=== PATIENT | male | born 1985 | race Two or more races ===

== ENCOUNTER 2018-06-23 20:49 | Emergency (ER) | payer SELFPAY ==
[~2018-06-23] VITALS: Ht 175.3 cm; Wt 102.1 kg
[2018-06-23 21:35] VITALS: BP 155/96
--- NOTE | 2018-06-23 22:24 | PHYS DOC ---
Past Medical History Past Medical History: No Pertinent History Past Surgical History: Other Additional Past Surgical Histo: RIGHT ELBOW Alcohol Use: Occasionally Drug Use: None Adult General Chief Complaint Chief Complaint: HAND PROBLEM HPI HPI Patient is a 33 year old male who presents to the ER with complaints of a fish hook stuck in the palmar aspect of his left 4th finger. He denies numbness or tingling. He is unsure of when his last tetanus immunization was. Review of Systems Review of Systems Constitutional: Denies fever or chills [] Musculoskeletal: Denies joint pain [] Integument: Denies rash or skin lesions; See HPI [] Neurologic: Denies headache, focal weakness or sensory changes [] Current Medications Current Medications Current Medications Medications (Trade) Dose Ordered Sig/Prudence Start Time Stop Time Status Last Admin Dose Admin Diphtheria/ Tetanus/Acell Pertussis (Boostrix) 0.5 ml ONCE ONCE 06/23/18 22:30 06/23/18 22:31 DC 06/23/18 22:49 0.5 ML Neomycin/ Polymyxin/ Bacitracin (Triple Antibiotic Ointment) 1 pkt 1X ONCE 06/23/18 23:00 06/23/18 23:01 DC 06/23/18 22:48 1 PKT Allergies Allergies Allergies Coded Allergies Type Severity Reaction Last Updated Verified No Known Drug Allergies 06/23/18 No Physical Exam Physical Exam Constitutional: Well developed, well nourished, no acute distress, non-toxic appearance. [] HENT: Normocephalic, atraumatic, bilateral external ears normal, nose normal. [] Eyes: conjunctiva normal, no discharge. [] Neck: Normal range of motion, no stridor. [] Lungs & Thorax: respirations even and unlabored, no retractions, no distress Skin: Warm, dry, no erythema, no rash; treble fishhook noted to the Palmar aspect of the left hand 4th digit, no bleeding [] Extremities: No cyanosis, ROM intact, no edema, no deformities. Neurologic: Alert and oriented X 3, normal motor function, normal sensory function, no focal deficits noted. [] Psychologic: Affect normal, judgement normal, mood normal. [] Current Patient Data Vital Signs EKG EKG [] Radiology/Procedures Radiology/Procedures Dr. Flores successfully removed travel hook from fourth digit of left hand using the string technique[] Course & Med Decision Making Course & Med Decision Making Pertinent Labs and Imaging studies reviewed. (See chart for details) [] Dragon Disclaimer Dragon Disclaimer This electronic medical record was generated, in whole or in part, using a voice recognition dictation system. Departure Departure Impression: Primary Impression: Fish hook injury of finger of left hand Additional Impression: Need for Tdap vaccination Disposition: HOME, SELF-CARE Condition: STABLE Patient Instructions: Fish Hook Removal, VIS, Diphtheria, Tetanus, and Pertussis (DTaP) - CDC Additional Instructions: Keep area clean and dry. Apply antibiotic ointment and a bandage twice daily and as needed. Tylenol or ibuprofen as needed for pain. Follow-up with your primary care doctor as needed, return to the ER symptoms worsen. Problem Qualifiers Primary Impression: Fish hook injury of finger of left hand Encounter type: initial encounter Qualified Codes: S69.92XA - Unspecified injury of left wrist, hand and finger(s), initial encounter JOSE ORTIZ APRN Jun 23, 2018 22:24
[2018-06-23] MEDS: NEOMY/BACITR/POLYMYXIN OINT PACKET. TP ONE (22:48)
[2018-06-23] MEDS: DIPHTH,PERTUSS(ACELL),TET TOX 0.5 ML DISP.SYRIN. VAX IM ONE (22:49)
== END 2018-06-23 23:20 | disposition home or self-care (01) ==
LOC: ER 20:49
DX: S60.455A Superficial foreign body of left ring finger, initial encounter (principal); W45.8XXA Other foreign body or object entering through skin, initial encounter; Y93.89 Activity, other specified; Y92.89 Other specified places as the place of occurrence of the external cause; Y99.8 Other external cause status
CPT/HCPCS: 90471; 90715; 99283